=== PATIENT | female | born 1980 | race Caucasian/White ===

== ENCOUNTER → 2016-10-24 | Outpatient (CLI) | payer OTHER | LOC: COL.RAD 10:20 | DX: D18.09 Hemangioma of other sites (principal) ==

== ENCOUNTER 2017-05-13 13:42 | Emergency (ER) | payer SELFPAY ==
[~2017-05-13] VITALS: Ht 162.6 cm; Wt 45.9 kg
[2017-05-13 13:47] VITALS: BP 132/77; PULSE 71; TEMP 98
[2017-05-13 14:27] LABS: COLLECTION METHOD CLEAN CATCH
[2017-05-13 14:43] LABS: MUCOUS Present /lpf; PH 6 (5-8); URINE APPEARANCE Hazy; URINE BACTERIA None Seen /hpf; URINE BILIRUBIN Negative (NEGATIVE); URINE BLOOD Negative (NEGATIVE); URINE COLOR Yellow; URINE GLUCOSE Negative (NEGATIVE); URINE KETONE Trace (NEGATIVE); URINE LEUKOCYTE ESTERASE 2+ (NEGATIVE); URINE PROTEIN(semi-quant) Negative (NEGATIVE); URINE RBC 0-2 /hpf; URINE UROBILINOGEN Negative (NEGATIVE)
[2017-05-13] MEDS ORDERED: CEPHALEXIN500 M1 PO (15:00)
[2017-05-13] MEDS ORDERED: FLEXERIL 1010 MG/TAB PO (15:00)
== END 2017-05-13 15:50 | disposition home or self-care (01) ==
LOC: COL.ER 13:42
PROVIDERS: Physician Assistant
DX: M54.30 Sciatica, unspecified side (principal); Z87.891 Personal history of nicotine dependence; X50.0XXA Overexertion from strenuous movement or load, initial encounter
CPT/HCPCS: J1885